=== PATIENT | male | born 1995 | race Two or more races ===

== ENCOUNTER 2020-05-21 00:38 | Emergency (ER) | payer OTHER ==
[~2020-05-21] VITALS: Ht 177.8 cm; Wt 119.5 kg
--- NOTE | 2020-05-21 01:42 | NUR ---
patient resting sitting up on side of bed. in NAD. call king in reach. VS remain stable on RA. steady gait in room. no SOB noted on exam. A&Ox4. will continue to monitor
[2020-05-21] MEDS ORDERED: ONDANSETRON ODT 4 MG ONE (02:09)
--- NOTE | 2020-05-21 02:17 | NUR ---
covid swab performed and walked to lab by this RN
[2020-05-21] MEDS ORDERED: ONDANSETRON ODT 4 MG PO ONE (02:30)
--- NOTE | 2020-05-21 02:52 | NUR ---
discharge instructions reviewed with patient. no further questions. prescription handed directly to patient. steady gait to lobby. information regarding quarantining provided. all personal belongings with patient on departure. no IV placed during this ER visit
[2020-05-21 02:53] VITALS: BP 119/70
== END 2020-05-21 03:11 | disposition home or self-care (01) ==
LOC: ED 01:08
DX: A08.4 Viral intestinal infection, unspecified (principal); Z20.822 Contact with and (suspected) exposure to COVID-19; R11.2 Nausea with vomiting, unspecified; R19.7 Diarrhea, unspecified
CPT/HCPCS: 99283; Q0162; U0003

== ENCOUNTER 2020-06-12 12:36 | Emergency (ER) | payer OTHER ==
[~2020-06-12] VITALS: Ht 177.8 cm; Wt 121.4 kg
[2020-06-12 12:49] VITALS: BP 114/89
--- NOTE | 2020-06-12 13:58 | NUR ---
HYDROELECTRIC STATION OPERATOR: PT TO ROOM FROM LOBBY
[2020-06-12] MEDS ORDERED: KETOROLAC 30 MG/1 ML ONE (14:10)
--- NOTE | 2020-06-12 14:14 | NUR ---
RUBBER PRINTING MACHINE OPERATOR PER MAR.
[2020-06-12] MEDS ORDERED: KETOROLAC 30 MG/1 ML IM ONE (14:30)
== END 2020-06-12 15:13 | disposition home or self-care (01) ==
LOC: ED 15:00
DX: S46.911A Strain of unspecified muscle, fascia and tendon at shoulder and upper arm level, right arm, initial encounter (principal); M77.8 Other enthesopathies, not elsewhere classified; X58.XXXA Exposure to other specified factors, initial encounter; Y93.89 Activity, other specified; Y92.89 Other specified places as the place of occurrence of the external cause; Y99.8 Other external cause status
CPT/HCPCS: 96372; 99283; J1885